=== PATIENT | male | born 1950 | race Caucasian/White ===

== ENCOUNTER 2021-09-14 06:22 | Day surgery (SDC) | payer MEDICARE, BC ==
[~2021-09-14] VITALS: Ht 182.9 cm; Wt 90.6 kg
[2021-09-14] MEDS ORDERED: PANT40TA54 PO (07:19)
[2021-09-14] MEDS ORDERED: MULT-1085 PO (07:19)
[2021-09-14] MEDS ORDERED: LISI1TAB53 PO (07:19)
[2021-09-14] MEDS ORDERED: CARV80CP8 PO (07:19)
[2021-09-14] MEDS ORDERED: MAGN400C PO (07:19)
[2021-09-14] MEDS ORDERED: ATOR40TA72 PO (07:19)
[2021-09-14] MEDS ORDERED: CHOL400T57 PO (07:20)
[2021-09-14 07:27] VITALS: BP 138/88
[2021-09-14] MEDS ORDERED: LIDOcaine 1%/PF 5ML 10 MG/ML VIAL ONE (08:22)
--- NOTE | 2021-09-14 09:00 | NUR ---
Patient back from Angio. No procedure performed. Patient will follow-up with primary MD.
== END 2021-09-14 09:18 | disposition home or self-care (01) ==
LOC: SSTAY O 06:22
PROVIDERS: ATTEND Preventive Medicine Aerospace Medicine
DX: R19.09 Other intra-abdominal and pelvic swelling, mass and lump (principal)
CPT/HCPCS: 76705; J3490; A4620; J7030

== ENCOUNTER 2022-10-07 08:45 | Inpatient (IN) | payer MEDICARE, BC ==
[~2022-10-07] VITALS: Ht 182.9 cm; Wt 87.5 kg
[~2022-10-07 08:45] MED LIST: ATOR40TA72 PO; CARV80CP8 PO; LISI1TAB53 PO; PANT40TA54 PO
[2022-10-14 12:02] LABS: BASOPHILS # (AUTO) 0.1 X10'3 (0-0.2); BASOPHILS % (AUTO) 0.6 % (0-1); EOSINOPHILS # (AUTO) 0.1 X10'3 (0-0.9); EOSINOPHILS % (AUTO) 0.7 % (0-6); LYMPHOCYTES # (AUTO) 1.6 X10'3 (1.1-4.8); LYMPHOCYTES % (AUTO) 16.2 % (21-51); MEAN CORPUSCULAR HEMOGLOBIN 30.7 PG (27.0-31.0); MEAN CORPUSCULAR HGB CONC 33.6 g/dL (33.0-36.5); MEAN CORPUSCULAR VOLUME 91.2 FL (78-98); MEAN PLATELET VOLUME 8.3 FL (7.4-10.4); MONOCYTES # (AUTO) 0.7 X10'3 (0-0.9); MONOCYTES % (AUTO) 6.8 % (2-12); NEUTROPHILS # (AUTO) 7.4 X10'3 (1.8-7.7); NEUTROPHILS % (AUTO) 75.7 % (42-75); PRE OP HEMATOCRIT 41.7 % (42.0-52.0); PRE OP PLATELET COUNT 261 X10'3 (140-440); RED BLOOD COUNT 4.57 X10'6 (4.70-6.10); RED CELL DISTRIBUTION WIDTH 13.9 % (11.5-14.5)
[2022-10-14 12:17] LABS: ALBUMIN 4.1 G/DL (3.4-5.0); ALBUMIN/GLOBULIN RATIO 1.3 (1.1-1.5); ALKALINE PHOSPHATASE 88 IU/L (46-116); BLOOD UREA NITROGEN 22 MG/DL (7-18); BUN/CREATININE RATIO 18.8 (10.0-20.0); CALCIUM 9.4 MG/DL (8.5-10.1); CHLORIDE 102 MMOL/L (99-107); CREATININE 1.17 MG/DL (0.60-1.10); PRE OP ALT 45 U/L (30-65); PRE OP ANION GAP 7 (8-16); PRE OP AST 32 U/L (10-37); PRE OP BILIRUB, TOTAL 1.8 MG/DL (0.0-1.0); PRE OP GLUCOSE 122 MG/DL (70-104); PRE OP POTASSIUM 4.1 MMOL/L (3.4-5.1); PRE OP SODIUM 140 MMOL/L (135-145); TOTAL CARBON DIOXIDE 31.4 MMOL/L (24-32); TOTAL PROTEIN 7.3 G/DL (6.4-8.2); eGFR 61 ML/MIN
[2022-10-21] VITALS (26 sets, daily range): BP systolic 95–142; BP diastolic 58–83
[2022-10-21] MEDS ORDERED: ringers solution, lacted 1,000 ML IV SCH ×2 (05:00→10:40)
[2022-10-21] MEDS ORDERED: oxyCODONE SR 10mg (sust. release) tab PO ONE (05:30)
[2022-10-21] MEDS ORDERED: vancomycin 1,500 MG in NS 300ml IV soln IV ONE (05:30)
[2022-10-21] MEDS ORDERED: celeCOXIB 100mg capsule PO ONE (05:30)
[2022-10-21] MEDS ORDERED: DOCUMENT DATE & TIME OF BETA-BLOCKER PO ONE (05:30)
[2022-10-21] MEDS ORDERED: gabapentin 300mg capsule PO ONE (05:30)
[2022-10-21] MEDS ORDERED: acetaminophen 325mg tablet PO ONE (05:30)
[2022-10-21] MEDS ORDERED: tranexamic acid inj. 1,000 MG in normal saline IV soln 100ML IV ONE (05:30)
[2022-10-21] MEDS ORDERED: famotidine 20mg tablet PO ONE (05:30)
[2022-10-21] MEDS ORDERED: metoclopramide 5 mg/ml inj IV ONE (05:30)
[2022-10-21] MEDS ORDERED: cefazolin 2gm/D5W 100mL 100 ML IV ONE (05:30)
[2022-10-21] MEDS ORDERED: albuterol 2.5 MG/3 ML nebule NEB ONE (05:30)
--- NOTE | 2022-10-21 06:39 | NUR ---
PATIENT HAS WATCHED VIDEO, [facility] INTACT, NO OINTMENT ORDERED, PULSES MARKED.
[2022-10-21] MEDS ORDERED: ketorolac trometh. 30mg/ml inj. ONE (06:52)
[2022-10-21] MEDS ORDERED: vancomycin 1,000mg inj ONE (06:52)
[2022-10-21] MEDS ORDERED: epiNEPHrine 1 mg/ml inj ONE (06:52)
[2022-10-21] MEDS ORDERED: cloNIDine hcl/PF 100mcg/ml inj ONE (06:52)
[2022-10-21] MEDS ORDERED: ROPIVAcaine 0.5% (5mg/ml) 30ml vial ONE (06:53)
[2022-10-21] MEDS ORDERED: acetaminophen 325mg tablet PO PRN (07:20)
[2022-10-21] MEDS ORDERED: naloxone 0.4 mg/ml inj IV PRN (07:20)
[2022-10-21] MEDS ORDERED: HYDROmorphone inj. 0.5 MG/0.5 ML DISP.SYRIN IV PRN (07:20)
[2022-10-21] MEDS ORDERED: ondansetron/PF 4mg/2ml inj IV PRN ×2 (07:20→10:40)
[2022-10-21] MEDS ORDERED: magnesium hydroxide 30ml (MOM) UD suspension PO PRN (07:20)
[2022-10-21] MEDS ORDERED: bisacodyl 10mg suppository rectal RC PRN (07:20)
[2022-10-21] MEDS ORDERED: HYDROmorphone 1 mg/ml syringe IV PRN (07:20)
[2022-10-21] MEDS ORDERED: diphenhydrAMINE 25mg capsule PO PRN ×2 (07:20)
[2022-10-21] MEDS ORDERED: MIDAZolam 1 MG/ML 5ML VIAL ONE (08:42)
[2022-10-21] MEDS ORDERED: fentaNYL/PF 50MCG/1 ML 2ML syringe ONE (08:42)
[2022-10-21] MEDS ORDERED: ePHEDrine 50MG/ML INJ. ONE (08:59)
[2022-10-21] MEDS ORDERED: morphine 2 MG/ML inj. syringe IV PRN (10:40)
[2022-10-21] MEDS ORDERED: proCHLORperazine 10 MG/2 ml inj IV PRN (10:40)
[2022-10-21] MEDS ORDERED: morphine 4 MG/ML inj SYRINge IV PRN (10:40)
[2022-10-21] MEDS ORDERED: meperidine/PF 25mg/ml syringe IV PRN ×3 (10:40)
--- NOTE | 2022-10-21 11:02 | NUR ---
Received from OR via BED, accompanied by Anesthesiologist JACKY and report given by Anesthesiolgist. PT VERY AWAKE AND RESPONSIVE. UNABLE TO OBTAIN ACCURATE FINGER SAO2 - HANDS COLD. CHANGED TO EAR PROBE - SAO2 99%; ENCOURAGED TO DEEP BREATHE; PT STATES HE SMOKES MARIJANA EVERY 2 HOURS. MONITOR Kuldip CORDOVA. JOSIAH DRESSING TO R HIP CDI; IV TO R FA - 20 GUAGE. PULSES GOOD IN ALL EXTREMITIES. Addendum: 10/21/22 at 1120 by Lluvia Estrada RN Amended: Links added.
--- NOTE | 2022-10-21 11:50 | NUR ---
TC TO DR. CLAROS TO INFORM THAT PT'S HR DROPS INTO THE MID 40'S WHEN HE IS NOT ROUSED. REQUESTED INSTRUCTION RE; ADMINISTRATION OF TRANSAMIC THAT IS IN THE CHART... RECEIVED INSTRUCTION TO GIVE. Addendum: 10/21/22 at 1157 by Lluvia Estrada RN Amended: Links added.
[2022-10-21] MEDS: potassium cl 20mEq in 1/2 NS 1,000 ML IV SCH ×2 (12:00→20:00)
--- NOTE | 2022-10-21 12:32 | NUR ---
TRANSPORTED TO ROOM VIA BED - REPORT TO MALIA SAGE AT BEDSIDE. HR 50'S SAO2 USING FINGER PROBE 96% ON RA; DRESSING CDI, DENIES PAIN BUT HAS TACTILE SENSATION ON UPPER THIGH. Addendum: 10/21/22 at 1242 by Lluvia Estrada RN Amended: Links added.
[2022-10-21] MEDS ORDERED: tranexamic acid inj. 880 MG in normal saline 100ml IV soln 91.2 ML IV ONE ×2 (13:00→16:00)
[2022-10-21] MEDS: HYDROchlorothiazide 25mg tablet PO SCH ×2 (13:16→21:49)
[2022-10-21] MEDS: HYDROcodone/acetaminophen 10/325mg tab PO PRN ×2 (13:17→21:46)
--- NOTE | 2022-10-21 14:45 | NUR ---
Patient in room ORTH[facility] 4022. I have received report from sarah noel and had the opportunity to ask questions and assume patient care.
--- NOTE | 2022-10-21 18:00 | NUR ---
Patient in room ORTHO 4022. I have received report from Brooklyn FINLEY and had the opportunity to ask questions and assume patient care.
--- NOTE | 2022-10-21 18:13 | NUR ---
Problems reprioritized. Patient report given, questions answered & plan of care reviewed with davin noel.
--- NOTE | 2022-10-21 18:43 | NUR ---
I have reviewed and agree with all interventions, assessments performed and documented by sarah noel.
[2022-10-21] MEDS ORDERED: VANCOMYCIN 1,500MG inj. 1,500 MG in normal saline 500ml IV soln 300 ML IV ONE (20:00)
[2022-10-21] MEDS: gabapentin 300mg capsule PO SCH (21:44)
[2022-10-21] MEDS: carVEDilol 12.5mg tablet PO SCH (21:44)
[2022-10-21] MEDS: ascorbic acid 500mg tablet PO SCH (21:45)
[2022-10-21] MEDS: sennosides 8.6mg tablet PO SCH (21:45)
[2022-10-21] MEDS: lisinopril 20mg tablet PO SCH (21:48)
[2022-10-22 01:52] VITALS: BP 118/70
[2022-10-22] MEDS: potassium cl 20mEq in 1/2 NS 1,000 ML IV SCH ×3 (04:00→16:36)
[2022-10-22] MEDS: HYDROcodone/acetaminophen 10/325mg tab PO PRN ×2 (04:54→20:39)
[2022-10-22 06:00] VITALS: BP 100/68
--- NOTE | 2022-10-22 06:15 | NUR ---
Problems reprioritized. Patient report given, questions answered & plan of care reviewed with Catina FINLEY.
[2022-10-22 07:40] LABS: BASOPHILS % (AUTO) 0.3 % (0-1); EOSINOPHILS # (AUTO) 0.1 X10'3 (0-0.9); EOSINOPHILS % (AUTO) 0.6 % (0-6); HEMATOCRIT 33.7 % (42.0-52.0); HEMOGLOBIN 11.3 g/dl (14.0-17.9); LYMPHOCYTES # (AUTO) 1.3 X10'3 (1.1-4.8); LYMPHOCYTES % (AUTO) 13.9 % (21-51); MEAN CORPUSCULAR HEMOGLOBIN 30.5 PG (27.0-31.0); MEAN CORPUSCULAR HGB CONC 33.5 g/dL (33.0-36.5); MEAN CORPUSCULAR VOLUME 90.8 FL (78-98); MONOCYTES # (AUTO) 0.8 X10'3 (0-0.9); MONOCYTES % (AUTO) 8.8 % (2-12); NEUTROPHILS # (AUTO) 6.9 X10'3 (1.8-7.7); NEUTROPHILS % (AUTO) 76.4 % (42-75); PLATELET COUNT 174 X10'3 (140-440); RED BLOOD COUNT 3.72 X10'6 (4.70-6.10); RED CELL DISTRIBUTION WIDTH 13.5 % (11.5-14.5)
[2022-10-22] MEDS: pantoprazole 40mg Tablet.DR PO SCH (07:46)
[2022-10-22] MEDS: ascorbic acid 500mg tablet PO SCH ×2 (07:46→20:38)
[2022-10-22] MEDS: gabapentin 300mg capsule PO SCH ×3 (07:46→20:39)
[2022-10-22] MEDS: multivitamins, therapeutics tablet PO SCH (07:46)
[2022-10-22] MEDS: atorvastatin 20mg tablet PO SCH (07:47)
[2022-10-22] MEDS: aspirin 325mg tablet PO SCH (07:47)
[2022-10-22] MEDS: carVEDilol 12.5mg tablet PO SCH ×2 (07:48→20:39)
[2022-10-22] MEDS: HYDROchlorothiazide 25mg tablet PO SCH ×3 (07:49→20:39)
[2022-10-22] MEDS: lisinopril 20mg tablet PO SCH ×3 (07:49→20:42)
[2022-10-22 07:59] LABS: ANION GAP 7 (8-16); CHLORIDE 101 MMOL/L (99-107); POTASSIUM 4.3 MMOL/L (3.5-5.1); SODIUM 137 MMOL/L (135-145); TOTAL CARBON DIOXIDE 29.2 MMOL/L (24-32)
[2022-10-22 10:00] VITALS: BP 97/56
--- NOTE | 2022-10-22 11:18 | NUR ---
Per EMR pt s/p revision left DONNA polyethylene wear. Written high protein nutrition therapy education with ONS coupons and RD contact information mailed to patient's home address found in EMR d/t short staffing. Will f/u for verbal education as able. Addendum: 10/22/22 at [address] Amended: Links added.
[2022-10-22 14:00] VITALS: BP 119/71
--- NOTE | 2022-10-22 15:07 | NUR ---
Paged case management regarding patient will need a front wheel walker for discharge
[2022-10-22 18:00] VITALS: BP 110/97
--- NOTE | 2022-10-22 18:00 | NUR ---
Patient in room ORTHO 4022. I have received report from Catina FINLEY and had the opportunity to ask questions and assume patient care.
[2022-10-22] MEDS: sennosides 8.6mg tablet PO SCH (20:38)
[2022-10-22] MEDS: celeCOXIB 100mg capsule PO SCH (20:38)
[2022-10-22 22:00] VITALS: BP 112/52
[2022-10-23] MEDS: potassium cl 20mEq in 1/2 NS 1,000 ML IV SCH (00:56)
[2022-10-23] MEDS: HYDROcodone/acetaminophen 10/325mg tab PO PRN ×2 (04:37→10:30)
[2022-10-23 05:30] VITALS: BP 86/53
--- NOTE | 2022-10-23 06:30 | NUR ---
Patient in room ORTHO 4022. I have received report from MALIA Rdz and had the opportunity to ask questions and assume patient care.
[2022-10-23 06:38] LABS: BASOPHILS % (AUTO) 0.2 % (0-1); EOSINOPHILS % (AUTO) 0.3 % (0-6); HEMATOCRIT 33.1 % (42.0-52.0); HEMOGLOBIN 11.1 g/dl (14.0-17.9); LYMPHOCYTES # (AUTO) 0.8 X10'3 (1.1-4.8); LYMPHOCYTES % (AUTO) 7.5 % (21-51); MEAN CORPUSCULAR HEMOGLOBIN 30.5 PG (27.0-31.0); MEAN CORPUSCULAR HGB CONC 33.7 g/dL (33.0-36.5); MEAN CORPUSCULAR VOLUME 90.5 FL (78-98); MEAN PLATELET VOLUME 8.4 FL (7.4-10.4); MONOCYTES # (AUTO) 1.1 X10'3 (0-0.9); MONOCYTES % (AUTO) 10.7 % (2-12); NEUTROPHILS # (AUTO) 8.8 X10'3 (1.8-7.7); NEUTROPHILS % (AUTO) 81.3 % (42-75); PLATELET COUNT 158 X10'3 (140-440); RED BLOOD COUNT 3.65 X10'6 (4.70-6.10); RED CELL DISTRIBUTION WIDTH 13.5 % (11.5-14.5); WHITE BLOOD COUNT 10.8 X10'3 (4.5-11.0)
[2022-10-23] MEDS: HYDROchlorothiazide 25mg tablet PO SCH ×2 (08:00→13:00)
[2022-10-23] MEDS: carVEDilol 12.5mg tablet PO SCH (08:00)
[2022-10-23] MEDS: lisinopril 20mg tablet PO SCH ×2 (08:00→13:00)
[2022-10-23 10:00] VITALS: BP 110/65
[2022-10-23] MEDS: aspirin 325mg tablet PO SCH (10:27)
[2022-10-23] MEDS: gabapentin 300mg capsule PO SCH ×2 (10:29→14:16)
[2022-10-23] MEDS: atorvastatin 20mg tablet PO SCH (10:29)
[2022-10-23] MEDS: ascorbic acid 500mg tablet PO SCH (10:29)
[2022-10-23] MEDS: pantoprazole 40mg Tablet.DR PO SCH (10:29)
[2022-10-23] MEDS: multivitamins, therapeutics tablet PO SCH (10:29)
[2022-10-23] MEDS: celeCOXIB 100mg capsule PO SCH (10:38)
[2022-10-23] MEDS ORDERED: TRAM50TA2 PO (11:44)
[2022-10-23 13:00] VITALS: BP_SYST 99
--- NOTE | 2022-10-23 15:05 | NUR ---
DC inst provided to pt & pt's . IV DC'd, tip intact. All belongings sent w/pt. WC to vehicle.
== END 2022-10-23 13:05 | disposition home or self-care (01) | DRG 468 ==
LOC: PAS IN 10-21 05:35 → ORTHO 4S 10-21 12:27
PROVIDERS: ADMIT Orthopaedic Surgery; ATTEND Orthopaedic Surgery
PROC: 0SUE09Z Supplement Left Hip Joint, Acetabular Surface with Liner, Open Approach (ICD-10-PCS; 2022-10-21)
PROC: 0SPB09Z Removal of Liner from Left Hip Joint, Open Approach (ICD-10-PCS; principal; 2022-10-21 08:38)
DX: T84.031A Mechanical loosening of internal left hip prosthetic joint, initial encounter (principal); T84.061A Wear of articular bearing surface of internal prosthetic left hip joint, initial encounter; Y79.2 Prosthetic and other implants, materials and accessory orthopedic devices associated with adverse incidents; I95.9 Hypotension, unspecified; Z79.82 Long term (current) use of aspirin; Y92.89 Other specified places as the place of occurrence of the external cause
CPT/HCPCS: 36415; 72170; 80051; 80053; 82948; 85025; 86885; 86900; 86901; 87081; 93005; 94640; 94760; 97116; 97161; 97530; G0378; J0171; J0690; J0735; J1885; J2250; J2405; J2765; J2795; J3010; J3370; J3480; J3490; J7040; J7060; J7120

== ENCOUNTER 2022-10-29 07:01 | Inpatient (IN) | payer MEDICARE, BC ==
[~2022-10-29] VITALS: Ht 182.9 cm; Wt 88.6 kg
[~2022-10-29 07:01] MED LIST changes: +TRAM50TA2 PO
[2022-10-29 07:26] VITALS: TEMP 97.8
[2022-10-29 08:47] LABS: BASOPHILS % (AUTO) 0.4 % (0-1); EOSINOPHILS # (AUTO) 0.1 X10'3 (0-0.9); EOSINOPHILS % (AUTO) 1.8 % (0-6); HEMATOCRIT 32.3 % (42.0-52.0); LYMPHOCYTES # (AUTO) 0.7 X10'3 (1.1-4.8); LYMPHOCYTES % (AUTO) 9.2 % (21-51); MEAN CORPUSCULAR HEMOGLOBIN 30.6 PG (27.0-31.0); MEAN CORPUSCULAR VOLUME 89.9 FL (78-98); MEAN PLATELET VOLUME 7.3 FL (7.4-10.4); MONOCYTES # (AUTO) 0.8 X10'3 (0-0.9); MONOCYTES % (AUTO) 10.3 % (2-12); NEUTROPHILS # (AUTO) 5.8 X10'3 (1.8-7.7); NEUTROPHILS % (AUTO) 78.3 % (42-75); PLATELET COUNT 270 X10'3 (140-440); RED BLOOD COUNT 3.59 X10'6 (4.70-6.10); RED CELL DISTRIBUTION WIDTH 13.4 % (11.5-14.5); WHITE BLOOD COUNT 7.3 X10'3 (4.5-11.0)
[2022-10-29 09:04] LABS: ALANINE AMINOTRANSFERASE 44 U/L (12-78); ALBUMIN 2.7 G/DL (3.4-5.0); ALBUMIN/GLOBULIN RATIO 0.8 (1.1-1.5); ALKALINE PHOSPHATASE 93 IU/L (46-116); ANION GAP 9 (8-16); ASPARTATE AMINO TRANSFERASE 36 U/L (10-37); BILIRUBIN,TOTAL 1.5 MG/DL (0.1-1.0); BLOOD UREA NITROGEN 24 MG/DL (7-18); BUN/CREATININE RATIO 20.5 (10.0-20.0); CALCIUM 8.4 MG/DL (8.5-10.1); CHLORIDE 98 MMOL/L (99-107); CREATININE 1.17 MG/DL (0.60-1.10); GLUCOSE 111 MG/DL (70-104); POTASSIUM 3.8 MMOL/L (3.5-5.1); SODIUM 135 MMOL/L (135-145); TOTAL CARBON DIOXIDE 28.4 MMOL/L (24-32); TOTAL PROTEIN 6.1 G/DL (6.4-8.2); eGFR 61 ML/MIN
[2022-10-29 09:54] LABS: CLARITY,URINE CLEAR (Clear); COLOR,URINE YELLOW (Yellow); GLUCOSE, URINE NEGATIVE (Neg); KETONES,URINE NEGATIVE (Neg); LEUKOCYTE ESTERASE ,URINE NEGATIVE (Neg); NITRITES, URINE NEGATIVE (Neg); OCCULT BLOOD,URINE NEGATIVE (Neg); PROTEIN,URINE NEGATIVE (Neg)
[2022-10-29 09:56] LABS: UA COLLECTION TYPE VOIDED
[2022-10-29] MEDS ORDERED: mag hydrox/Alum hydrox/simeth 30ml oral suspension PO PRN (10:40)
[2022-10-29] MEDS ORDERED: HYDROcodone/acetaminophen 10/325mg tab PO PRN (10:40)
[2022-10-29] MEDS ORDERED: magnesium 4gm in 100ml NS 100 ML IV PRN (10:40)
[2022-10-29] MEDS ORDERED: ondansetron/PF 4mg/2ml inj IV PRN (10:40)
[2022-10-29] MEDS ORDERED: HYDROcodone/acetaminophen 5mg/325mg tablet PO PRN (10:40)
[2022-10-29] MEDS ORDERED: potassium Cl 20 mEq SR tablet PO PRN ×2 (10:40)
[2022-10-29] MEDS ORDERED: acetaminophen 325mg tablet PO PRN ×2 (10:40)
[2022-10-29] MEDS ORDERED: potassium Cl 40MEQ/1/2NS 520ml 520 ML IV PRN (10:40)
[2022-10-29] MEDS ORDERED: insulin Lispro (HumaLOG) vial - multi-dose SQ SCH (13:05)
[2022-10-29] MEDS ORDERED: DEXTROSE 15 GM of carb/4 tabs (each vial/BOTTLE has 4 tablets) PO PRN ×2 (13:05)
[2022-10-29] MEDS ORDERED: MESSAGE TO PHARMACY PO ONE (13:05)
[2022-10-29] MEDS ORDERED: dextrose 50%-water 50ml dispensing syringe IV PRN ×2 (13:05)
[2022-10-29] MEDS ORDERED: glucagon, human recombinant 1mg kit SUBCUT PRN (13:05)
[2022-10-29 13:39] LABS: HEMOGLOBIN A1C 6.2 % (4.5-6.2)
[2022-10-29 14:44] VITALS: BP 107/75; PULSE 82; RESP 14; O2SAT 95
[2022-10-29] MEDS ORDERED: CELE-85 PO (14:50)
[2022-10-29] MEDS ORDERED: ASPI-1475 PO (14:50)
[2022-10-29] MEDS ORDERED: PRED5DRO23 RIGHTEYE (14:54)
[2022-10-29] MEDS ORDERED: ACET-2006 PO (14:55)
[2022-10-29] MEDS ORDERED: non-formulary drug (Acetaminophen (Acetaminophen Extra Strength) 1 TAB) PO PRN (16:00)
[2022-10-29] MEDS ORDERED: CELECOXIB PO PRN (16:00)
[2022-10-29] MEDS ORDERED: K and/or MAG REPLACEMENT MC SCH (20:00)
[2022-10-29] MEDS ORDERED: docusate sod 100mg capsule PO SCH (20:00)
[2022-10-29] MEDS ORDERED: insulin glargine (Lantus) pen - multi-dose SQ SCH (21:00)
[2022-10-29] MEDS ORDERED: lisinopril 20mg tablet PO SCH (21:00)
[2022-10-30] MEDS ORDERED: HYDROchlorothiazide 25mg tablet PO SCH (08:00)
[2022-10-30] MEDS ORDERED: atorvastatin 20mg tablet PO SCH (08:00)
[2022-10-30] MEDS ORDERED: aspirin 81mg, enteric-coated 1 TAB TABLET.DR PO SCH ×2 (08:00)
[2022-10-30] MEDS ORDERED: CARVEDILOL PHOSPHATE 80 MG PO SCH (08:00)
[2022-10-30] MEDS ORDERED: pantoprazole 40mg Tablet.DR PO SCH (08:00)
[2022-11-01] MEDS ORDERED: prednisoLONE acetate 1% ophth susp 5ml RIGHTEYE SCH (08:00)
== END 2022-10-29 19:27 | disposition home or self-care (01) | DRG 561 ==
LOC: ER 07:02 → ED HOLD 10:45 → ORTHO 4S 18:15
PROVIDERS: ADMIT Family Medicine; ATTEND Family Medicine
DX: T84.090A Other mechanical complication of internal right hip prosthesis, initial encounter (principal); R53.1 Weakness; G83.9 Paralytic syndrome, unspecified; E11.9 Type 2 diabetes mellitus without complications; E78.5 Hyperlipidemia, unspecified; I10 Essential (primary) hypertension; F12.90 Cannabis use, unspecified, uncomplicated; N28.9 Disorder of kidney and ureter, unspecified; Z96.642 Presence of left artificial hip joint; J44.9 Chronic obstructive pulmonary disease, unspecified; Z79.84 Long term (current) use of oral hypoglycemic drugs; Z82.49 Family history of ischemic heart disease and other diseases of the circulatory system; Z82.5 Family history of asthma and other chronic lower respiratory diseases; Z87.891 Personal history of nicotine dependence; Z94.7 Corneal transplant status; Z79.899 Other long term (current) drug therapy; Z98.52 Vasectomy status; Z79.82 Long term (current) use of aspirin
CPT/HCPCS: 36415; 71045; 73502; 80053; 81003; 83036; 84145; 85025; 93005; 97161; 97530; 99285; G0378; J1815

== ENCOUNTER 2023-11-22 10:21 | Outpatient (CLI) | payer MEDICARE, BC ==
[2023-11-18 14:29] LABS: ALBUMIN 3.8 G/DL (3.4-5.0); ANION GAP 4 (8-16); BLOOD UREA NITROGEN 31 MG/DL (7-18); BUN/CREATININE RATIO 21.5 (10.0-20.0); CALCIUM 9.2 MG/DL (8.5-10.1); CHLORIDE 104 MMOL/L (99-107); CREATININE 1.44 MG/DL (0.60-1.10); GLUCOSE 111 MG/DL (70-104); POTASSIUM 3.8 MMOL/L (3.5-5.1); SODIUM 141 MMOL/L (135-145); TOTAL CARBON DIOXIDE 33.3 MMOL/L (24-32); eGFR 48 ML/MIN
[~2023-11-22 10:21] MED LIST changes: +ACET-2006 PO; +ASPI-1475 PO; +CELE-127 PO; +PRED5DRO23 RIGHTEYE; -TRAM50TA2 PO; +iohexol 350MG/ML 100ml bottle IV ONE
== END 2023-11-22 23:59 | disposition home or self-care (01) ==
LOC: RAD 10:21
PROVIDERS: ATTEND Surgery
DX: I65.23 Occlusion and stenosis of bilateral carotid arteries (principal); I10 Essential (primary) hypertension
CPT/HCPCS: 36415; 70498; 80048; Q9967

== ENCOUNTER 2024-03-07 14:13 | Outpatient (CLI) | payer MEDICARE, BC ==
[2024-03-07 15:09] LABS: ALANINE AMINOTRANSFERASE 24 U/L (12-78); ALBUMIN 3.6 G/DL (3.4-5.0); ALBUMIN/GLOBULIN RATIO 1.1 (1.1-1.5); ALKALINE PHOSPHATASE 74 IU/L (46-116); ANION GAP 6 (8-16); ASPARTATE AMINO TRANSFERASE 18 U/L (10-37); BILIRUBIN,TOTAL 1.4 MG/DL (0.1-1.0); BLOOD UREA NITROGEN 24 MG/DL (7-18); CALCIUM 8.6 MG/DL (8.5-10.1); CHLORIDE 107 MMOL/L (99-107); CREATININE 1.09 MG/DL (0.60-1.10); GLUCOSE 98 MG/DL (70-104); POTASSIUM 3.8 MMOL/L (3.5-5.1); SODIUM 143 MMOL/L (135-145); TOTAL CARBON DIOXIDE 29.8 MMOL/L (24-32); TOTAL PROTEIN 6.9 G/DL (6.4-8.2); eGFR 66 ML/MIN
== END 2024-03-07 23:59 | disposition home or self-care (01) ==
LOC: RAD 14:13
PROVIDERS: ATTEND Surgery
DX: I65.23 Occlusion and stenosis of bilateral carotid arteries (principal); M47.812 Spondylosis without myelopathy or radiculopathy, cervical region; M48.02 Spinal stenosis, cervical region; M25.78 Osteophyte, vertebrae; I70.0 Atherosclerosis of aorta; M26.602 Left temporomandibular joint disorder, unspecified; Z98.890 Other specified postprocedural states
CPT/HCPCS: 36415; 70498; 80053; Q9967

== ENCOUNTER 2024-06-04 06:17 | Day surgery (SDC) | payer MEDICARE, BC ==
[~2024-06-04] VITALS: Ht 182.9 cm; Wt 86.8 kg
[~2024-06-04 06:17] MED LIST changes: -ACET-2006 PO; +ASPI-1264 PO; -ASPI-1475 PO; -ATOR40TA72 PO; -CELE-127 PO; -LISI1TAB53 PO; +LISI40TA13; +MULT-1085 PO; -PRED5DRO23 RIGHTEYE; +ROSU40TA89; +VIT B12 PO; +VIT B6 PO; +VIT C PO; +VIT D3 PO; -iohexol 350MG/ML 100ml bottle IV ONE
[2024-06-04 07:14] VITALS: BP 160/91; PULSE 70; RESP 17; TEMP 98.7
[2024-06-04] MEDS ORDERED: propofol inj 20 ML IV ONE (08:11)
[2024-06-04 08:30] VITALS: BP 144/86; PULSE 68; RESP 18; O2SAT 100
[2024-06-04 08:40] VITALS: BP 134/87; PULSE 66; RESP 17; O2SAT 100
[2024-06-04 08:50] VITALS: BP 147/93; PULSE 65; RESP 17; O2SAT 97
[2024-06-04 09:00] VITALS: BP 134/90; PULSE 64; RESP 15; O2SAT 98
[2024-06-04 09:10] VITALS: BP 132/81; PULSE 64; RESP 14; O2SAT 99
== END 2024-06-04 09:21 | disposition home or self-care (01) ==
LOC: GI LAB 06:17
PROVIDERS: ATTEND Internal Medicine Gastroenterology
DX: R13.10 Dysphagia, unspecified (principal); K21.00 Gastro-esophageal reflux disease with esophagitis, without bleeding; K22.2 Esophageal obstruction; K44.9 Diaphragmatic hernia without obstruction or gangrene; I10 Essential (primary) hypertension; J44.9 Chronic obstructive pulmonary disease, unspecified; Z86.73 Personal history of transient ischemic attack (TIA), and cerebral infarction without residual deficits; Z87.891 Personal history of nicotine dependence
CPT/HCPCS: 43239; 43248; A4620; C1769; J2704; J7030; Z7512

== ENCOUNTER 2024-08-23 10:20 | Outpatient (CLI) | payer MEDICARE, BC ==
[~2024-08-23 10:20] MED LIST changes: +barium sulfate 340gm for oral suspension 1 BOTTLE SUSP.RECON PO ONE
--- NOTE | 2024-08-23 18:33 | RADIOLOGY REPORT ---
Esophagram study: HISTORY: Dysphasia With the patient in upright and prone positions both thin and thick barium liquid meals were administered with direct fluoroscopic evaluation. Total fluoroscopy time was 1.0 minutes with dose of 48.2 mGy. There is normal esophageal gastric and proximal duodenal as well as jejunal motility. There is a small reducible axial hiatal hernia without significant gastroesophageal reflux. No evidence of stricture throughout the esophagus. Esophageal mucosal pattern appears somewhat prominent although no evidence of ulceration. Stomach and duodenum mucosal patterns appear unremarkable. IMPRESSION: Reducible axial hiatal hernia with no significant gastroesophageal reflux. Slightly prominent esophageal mucosal pattern.
== END 2024-08-23 23:59 | disposition home or self-care (01) ==
LOC: RAD 10:20
PROVIDERS: ATTEND Internal Medicine Gastroenterology
DX: K44.9 Diaphragmatic hernia without obstruction or gangrene (principal); R13.10 Dysphagia, unspecified
CPT/HCPCS: 74220

== ENCOUNTER 2025-02-04 07:49 | Day surgery (SDC) | payer MEDICARE, BC ==
[2025-01-30 10:25] LABS: MEAN PLATELET VOLUME 8.1 FL (7.4-10.4); PRE OP HEMATOCRIT 38.6 % (42.0-52.0); PRE OP HEMOGLOBIN 13.3 g/dL (14.0-17.9); PRE OP PLATELET COUNT 221 X10'3 (140-440); PRE OP WHITE BLOOD COUNT 6.9 10'3 (4.8-10.8); RED CELL DISTRIBUTION WIDTH 13.6 % (11.5-14.5)
[2025-01-30 10:40] LABS: CREATININE 1.25 MG/DL (0.60-1.10); PRE OP ALT 25 U/L (30-65); PRE OP ANION GAP 5 (8-16); PRE OP AST 24 U/L (10-37); PRE OP BILIRUB, TOTAL 1.5 MG/DL (0.0-1.0); PRE OP GLUCOSE 103 MG/DL (70-104); PRE OP POTASSIUM 4.2 MMOL/L (3.4-5.1); PRE OP SODIUM 140 MMOL/L (135-145); TOTAL CARBON DIOXIDE 32.6 MMOL/L (24-32); eGFR 56 ML/MIN
--- NOTE | 2025-01-30 10:44 | ELECTROCARDIOGRAPH REPORT ---
[facility] Test Date: 2025-01-30 Test Time: 10:41:51 Pat Name: GLENN SANTAMARIA Department: [facility]-PRE-OP Patient ID: [id number] Room: Gender: M Spooler: fernanda : [id number] Requested By: AMARI HARRIS Order Number: [id number] Reading MD: Dr. MISTI Price Measurements Intervals Rulo Rate: 69 P: -34 OK: 258 QRS: 67 QRSD: 94 T: 51 QT: 398 QTc: 427 Interpretive Statements Sinus rhythm Prolonged OK interval Electronically Signed On 01-30-2025 19:48:[address] MISTI Price Please click the below link to view image of tracing.
[2025-02-04] VITALS (7 sets, daily range): BP systolic 98–153; BP diastolic 67–99; PULSE 58–68; RESP 12–16; TEMP 97.8; O2SAT 94–99
[~2025-02-04] VITALS: Ht 182.9 cm; Wt 89.4 kg
[~2025-02-04 07:49] MED LIST changes: +ASCO500T19 PO; +BUPIVAcaine/PF 2.5mg/ml (0.25%) 10ml vial ONE; +CHOL500050 PO; +CYAN-116 PO; +DOCUMENT DATE & TIME OF BETA-BLOCKER PO ONE; +LIDOcaine 2% (20mg/ml) 5ml vial ONE; +LISI-644 PO; -LISI40TA13; +MAGN300T PO; +PYRI50TA12 PO; -ROSU40TA89; +ROSU40TA89 PO; +TURM500C13 PO; -VIT B12 PO; -VIT B6 PO; -VIT C PO; -VIT D3 PO; -barium sulfate 340gm for oral suspension 1 BOTTLE SUSP.RECON PO ONE; +ringers solution, lacted 1,000 ML IV SCH
[2025-02-04] MEDS: ceFAZolin 2gm/dext,iso 50mL 50 ML IV ONE (08:10)
[2025-02-04] MEDS ORDERED: propofol inj 20 ML IV ONE (09:49)
--- NOTE | 2025-02-04 12:56 | OPERATIVE REPORT ---
Operative Report Providers to ~ Date of Procedure: Feb 04, 2025 Pre-Operative Diagnosis: Wrist carpal tunnel syndrome Post-Operative Diagnosis SAME as PRE-Op Procedure Performed Left wrist open carpal tunnel release Surgeon: Shayan Hernandez MD Fence Making Machine Operator None Anesthesiologist: Uri Anderson Type of Anesthesia: Other (Local anesthetic) Findings: Estimated Blood Loss: None Specimen Removed: None Description of Procedure: INDICATIONS: This patient is a 74 year old man with left sided carpal tunnel syndrome refractory to conservative treatment. Surgery is indicated for relief of symptoms. Procedure- The risks, benefits, expected results, and possible complications of the planned procedure had been explained to the patient and informed consent obtained. PROCEDURE- The left arm was prepped and draped in the usual manner. Local anesthetic was injected proximal to the volar wrist area. An incision was made in the palm ulnar to the thenar crease in line with the ring finger. Blunt dissection was performed through deeper tissues until the transverse carpal ligament was encountered. The carpal tunnel was entered with an incision in line with the skin incision. The nerve was protected and the ligament was released distally and proximally. The forearm fascia proximal to the incision was released using bunt Metzenbaum scissors. The nerve was decompressed at this point. The wound was irrigated and the small bleeders were cauterized. The wound was then closed with 5-O nylon sutures. The tourniquet was released and the hand perfused well.A sterile dressing was applied. The patient was then taken to the recovery room in stable condition. The patient tolerated the procedure well. SHAYAN HERNANDEZ Jr., MD Feb 04, 2025 12:56
== END 2025-02-04 10:50 | disposition home or self-care (01) ==
LOC: PAS 07:49
PROVIDERS: ATTEND Orthopaedic Surgery Hand Surgery
DX: G56.02 Carpal tunnel syndrome, left upper limb (principal); I10 Essential (primary) hypertension; J44.9 Chronic obstructive pulmonary disease, unspecified; F41.1 Generalized anxiety disorder; G62.9 Polyneuropathy, unspecified; M19.90 Unspecified osteoarthritis, unspecified site; Z86.73 Personal history of transient ischemic attack (TIA), and cerebral infarction without residual deficits; Z79.82 Long term (current) use of aspirin; Z79.899 Other long term (current) drug therapy; Z87.891 Personal history of nicotine dependence; Z82.49 Family history of ischemic heart disease and other diseases of the circulatory system; Z98.890 Other specified postprocedural states
CPT/HCPCS: 36415; 64721; 80053; 82948; 85025; 93005; A4215; A6449; J2003; J2704; J3490; J7030; J7120; Z7506; Z7512; Z7610